=== PATIENT | female | born 1945 | race Two or more races ===

== ENCOUNTER 2023-12-25 16:14 | Inpatient (IN) | payer OTHER ==
[~2023-12-25] VITALS: Ht 157.5 cm; Wt 68.0 kg
[2023-12-25] MEDS ORDERED: ATORVASTATIN CA20 MG (16:26)
[2023-12-25] MEDS ORDERED: LOSARTAN POTASS25 MG (16:27)
--- NOTE | 2023-12-25 16:27 | NUR ---
SE RECIBE PACIENTE ALERTA Y ORIENTADA X 3 ESFERAS EN AMBULANCIA LA CUAL INDICA QUE DESDE GIANNA PRESENTA DEBILIDAD, FIEBRE, TOS Y DIFICULTAD AL RESPIRAR. SE OBSERVA VENOPUNCION EN BRAZO YASMANI AREA MARC DE EDEMA Y ERITEMA, RECIBIENDO IV'S 0.9NSS DE 250ML/HR.
[2023-12-25] MEDS ORDERED: 0.9 % SODIUM CHLORIDE 1,000 ML IV SCH (18:15)
[2023-12-25] MEDS ORDERED: ACETAMINOPHEN 500 MG GEL..CAP PO ONE (18:15)
--- NOTE | 2023-12-25 18:26 | NUR ---
RN CANCEL ORIENTA SOBRE TRATAMIENTO MEDICO. SE CANALIZA VENA Y SE JOSELO MUESTRAS DE LAB BAJO MEDIDAS ASEPTICAS. SE ADMINISTRA MEDICAMENTO JOSE ELIAS ORDEN MEDICA
[2023-12-25 20:17] LABS: HEMATOCRIT 36.1 % (36.0-45.00); HEMOGLOBIN 12.3 g/dL (12.0-15.00); MEAN CELL VOLUME 85.2 fL (80.00-100.00); MEAN CORPUSCULAR HGB CONC 34.1 g/dl (32.0-36.0); PLATELET COUNT 154 K/uL (150-450); RED BLOOD COUNT 4.24 M/uL (4.00-6.00); RED CELL DISTRIBUTION WIDTH 14.2 % (11.5-14.5)
[2023-12-25 20:44] LABS: ALBUMIN 3.6 gm/dL (3.4-5.0); BILIRUBIN TOTAL 0.39 mg/dL (0.3-1.2); CALCIUM 8.7 mg/dL (8.5-10.1); CREATININE SERUM 0.69 mg/dL (0.55-1.02); GFR 82.5; GLOBULINA 3.2 G/DL (2.4-3.5); POTASSIUM 3.74 mEq/L (3.5-5.1); TOTAL PROTEIN 6.8 gm/dL (6.4-8.2)
--- NOTE | 2023-12-25 20:48 | NUR ---
SE INSERTA LYN JOSE ELIAS ORDEN MEDICA, BAJO MEDIDAS ASEPTICAS. SE ORIENTA A FAMILIAR QUIEN REFIERE ENTENDER Y ACEPTAR
[2023-12-25 21:38] LABS: URINE APPEARANCE Clear; URINE BILIRRUBIN Negative (NEGATIVE); URINE BLOOD Small; URINE COLOR Yellow; URINE GLUCOSE Negative (NEGATIVE); URINE KETONE Trace (NEGATIVE); URINE LEUKOCYTE Negative; URINE NITRATE Negative; URINE PROTEIN 30 (NEGATIVE); URINE UROBILINOGEN 0.2 E.U./dl
[2023-12-25 21:42] LABS: URINE BACTERIA 103.3 uL (0.0-1933); URINE EPITHELIAL CELLS 10.5 uL (0.0-38.8); URINE RBC 6.1 uL (0.0-20.8); URINE WBC 7.4 uL (0.0-23.2)
--- NOTE | 2023-12-25 23:00 | NUR ---
SE RECIBE PTE ALERTA EN PERSONA EN ABIODUN CON BARANDAS ELEVADAS POR CHAMBERS SEGURIDAD.EN COMPANIA DE FAMILIAR.VENOPUNCION PATENTE MARC DE EDEMA Y ERITEMA RECIBIENDO 0.9NSS BAJANDO A 180ML/HR.PENDIENTE CT DE [place].
[2023-12-25] MEDS ORDERED: AZITHROMYCIN 500 MG TABLET PO ONE (23:45)
[2023-12-25] MEDS ORDERED: OSELTAMIVIR PHOSPHATE 75 MG CAPSULE PO ONE (23:45)
[2023-12-26 00:36] LABS: ABG PH 7.341 (7.35-7.45); ABG pCO2 45.4 mmHg (35-45)
[2023-12-26 00:37] LABS: ABG PO2 78.4 mmHg (80-100); BASE EXCESS -1.9 mmol/l; BICARBONATE 24.1 mmol/l (23-25); SaO2 93.4 %; Tco2 25.4 mmol/l; allen test SATISFACTORY; o2 21 %; puncture site RADIAL RIGHT
[2023-12-26] MEDS ORDERED: LEVALBUTEROL HCL 0.63 MG/3 ML SOLUTION IH SCH (01:00)
--- NOTE | 2023-12-26 07:29 | NUR ---
SE RECIBE PACIENTE ALERTA Y ORIENTADA X3 LA CUAL AL MOMENTO SE ENCUENTRA EN COMPANIA DE FAMILIAR EN ABIODUN CON BARANDAS ELEVADAS. SE MANTIENE BAJO OBSERVACION PARA CONTINUACION DE TRATAMIENTO.
[2023-12-26] MEDS ORDERED: OSELTAMIVIR PHOSPHATE 75 MG CAPSULE PO SCH ×2 (11:29→13:13)
[2023-12-26] MEDS ORDERED: 0.9 % SODIUM CHLORIDE 1,000 ML IV SCH (11:30)
[2023-12-26] MEDS ORDERED: ACETAMINOPHEN 500 MG GEL..CAP PO PRN (11:30)
[2023-12-26] MEDS ORDERED: FAMOTIDINE/PF 20 MG in 0.9 % SODIUM CHLORIDE 100 ML IV SCH (11:30)
[2023-12-26] MEDS ORDERED: ONDANSETRON HCL 4 MG in 0.9 % SODIUM CHLORIDE 50 ML IV PRN (11:45)
[2023-12-26] MEDS ORDERED: ATORVASTATIN CALCIUM 10 MG TABLET PO SCH (12:03)
[2023-12-26] MEDS ORDERED: LOSARTAN POTASSIUM 50 MG TABLET PO SCH (12:03)
[2023-12-26 14:34] LABS: INR 1.05; PARTIAL THROMBOPLASTIN TIME 30.2 SECONDS (22.0-34.0); PROTHROMBIN TIME 11.4 SECONDS (9.0-11.5)
[2023-12-26 14:49] LABS: ALBUMIN 3.2 gm/dL (3.4-5.0); BILIRUBIN TOTAL 0.28 mg/dL (0.3-1.2); CALCIUM 8.6 mg/dL (8.5-10.1); CREATININE SERUM 0.51 mg/dL (0.55-1.02); GFR 116.93; GLOBULINA 2.7 G/DL (2.4-3.5); POTASSIUM 3.87 mEq/L (3.5-5.1); TOTAL PROTEIN 5.9 gm/dL (6.4-8.2)
[2023-12-26 16:21] VITALS: BP 148/78; O2SAT 98
[2023-12-26 22:22] VITALS: BP 162/83
[2023-12-27 03:22] VITALS: BP 154/80; O2SAT 98
[2023-12-27 08:44] VITALS: BP 144/79
[2023-12-27 18:18] VITALS: BP 149/80; O2SAT 99
[2023-12-28 01:42] VITALS: BP 142/64; O2SAT 96
[2023-12-28 08:46] VITALS: BP 145/70
== END 2023-12-28 16:48 | disposition home or self-care (01) | DRG 195 ==
LOC: ER 16:14 → MEDJ 12-26 11:32 → SEC-K 12-26 11:32 → MEDI 12-26 15:25 → MEDJ 12-26 15:50
PROVIDERS: Emergency Medicine; General Practice; ADMIT Internal Medicine; ATTEND Internal Medicine
PROC: B24BZZZ Ultrasonography of Heart with Aorta (ICD-10-PCS; principal; 2023-12-27)
DX: J10.1 Influenza due to other identified influenza virus with other respiratory manifestations (principal); I10 Essential (primary) hypertension; E86.0 Dehydration; R41.82 Altered mental status, unspecified